=== PATIENT | female | born 2000 | race Caucasian/White ===

== ENCOUNTER 2020-03-10 14:47 | Emergency (ER) | payer OTHER ==
[~2020-03-10] VITALS: Ht 170.2 cm; Wt 83.9 kg
[2020-03-10 15:37] LABS: URINE BLOOD NEGATIVE (Negative); URINE CLARITY CLEAR; URINE COLOR YELLOW; URINE GLUCOSE-RANDOM* NEGATIVE (Negative); URINE KETONES 3+ (Negative); URINE LEUKOCYTES-REFLEX NEGATIVE (Negative); URINE NITRITE-REFLEX NEGATIVE (Negative); URINE PROTEIN (DIPSTICK) NEGATIVE (Negative); URINE SPECIFIC GRAVITY >= 1.030 (1.005-1.035)
[2020-03-10 15:47] LABS: ICTOTEST (BILI CONFIRMATORY) Negative (Negative); URINE BILIRUBIN NEGATIVE (Negative); URINE REDUCING SUBSTANCE NEGATIVE
[2020-03-10 15:51] LABS: HEMATOCRIT 38.3 % (37.0-47.0); HEMOGLOBIN 12.9 gm/dL (12.0-15.0); MCH 29.9 pg (26.0-34.0); MCHC 33.6 g/dL (28.0-37.0); PLATELET COUNT 249 thou/uL (150-400); RBC 4.31 mil/uL (4.20-5.00); RDW 12.6 % (10.5-14.5)
[2020-03-10 15:54] LABS: AMP/METHAMP POSITIVE (Negative); BARBITURATES Negative (Negative); BENZODIAZEPINES Negative (Negative); COCAINE Negative (Negative); METHADONE Negative (Negative); OPIATES Negative (Negative); PCP Negative (Negative)
[2020-03-10 15:58] LABS: CALCIUM 9.1 mg/dL (8.5-10.1); CREATININE 0.4 mg/dL (0.6-1.0); POTASSIUM 4.7 mmol/L (3.5-5.1)
[2020-03-10 16:04] LABS: ALBUMIN 3.6 g/dL (3.4-5.0); TOTAL BILIRUBIN 1.1 mg/dL (0.2-1.0); TOTAL PROTEIN 7.4 g/dL (6.4-8.2)
[2020-03-10 16:10] LABS: ABSOLUTE NEUTROPHILS 8.8 thou/uL (1.4-8.2); PLATELET ESTIMATE NORMAL
[2020-03-10] MEDS ORDERED: CLEOCIN HCL300 MG PO (16:55)
[2020-03-10] MEDS ORDERED: MOBIC7.5 M1 PO (16:55)
[2020-03-10 18:03] VITALS: BP 132/79
== END 2020-03-10 18:03 | disposition home or self-care (01) ==
LOC: ER 14:47
PROVIDERS: Physician Assistant
DX: S40.022A Contusion of left upper arm, initial encounter (principal); L03.114 Cellulitis of left upper limb; F15.10 Other stimulant abuse, uncomplicated; X58.XXXA Exposure to other specified factors, initial encounter; Y93.89 Activity, other specified; Y92.89 Other specified places as the place of occurrence of the external cause; Y99.8 Other external cause status

== ENCOUNTER 2020-03-17 16:02 | Inpatient (IN) | payer OTHER ==
[~2020-03-17] VITALS: Ht 170.2 cm; Wt 87.1 kg
--- NOTE | ~2020-03-17 | O ---
[facility] [place] [address] OPERATIVE REPORT Name: MOIRA FRANCIS Room #: 357-P ADM IN M.R.#: [id number] Admission: 03/17/20 Attend Phys: Idris Babin MD Discharge: Date of : 89 Report #: [id number] THIS REPORT FOR: cc: ENRIQUE - No family physician/PCP ENRIQUE - No family physician/PCP Jose Miguel Milner MD ~ CC: [facility] physician/PCP Idris Babin DATE OF SERVICE: 03/21/2020 PREOPERATIVE DIAGNOSIS: Left arm hematoma/abscess. POSTOPERATIVE DIAGNOSIS: Left arm hematoma/abscess. OPERATION: Incision and drainage of left arm, hematoma/abscess. SURGEON: Jose Miguel Milner MD ANESTHESIA: Local monitored. ESTIMATED BLOOD LOSS: Minimal. SPECIMEN: Fluid for culture and sensitivity. DESCRIPTION OF PROCEDURE: After informed consent was obtained, the patient was brought to the operating room and placed supine. SCDs were placed and working and local monitored anesthesia was induced. The left arm was prepped and draped in the usual sterile fashion. She had opening in the left antecubital fossa. This was draining serous fluid. I took this opening and extended it laterally and medially approximately 1 cm on each side. This allowed for drainage of serosanguineous fluid. It was cultured. Loculations were broken up bluntly with a clamp. The area was then copiously irrigated with normal saline and packed with sterile gauze. Sterile dressings were applied. COMPLICATIONS: None. DISPOSITION: The patient was taken to recovery in satisfactory condition. By: [id number] Jose Miguel Milner MD /nt
[~2020-03-17 16:02] MED LIST: CLEOCIN HCL300 MG PO; MOBIC7.5 M1 PO
[2020-03-17 16:15] VITALS: BP 137/77
[2020-03-17 16:59] LABS: URINE BILIRUBIN 1+ (Negative); URINE BLOOD TRACE (Negative); URINE CLARITY CLOUDY; URINE COLOR YELLOW; URINE GLUCOSE-RANDOM* NEGATIVE (Negative); URINE KETONES NEGATIVE (Negative); URINE LEUKOCYTES-REFLEX NEGATIVE (Negative); URINE NITRITE-REFLEX NEGATIVE (Negative); URINE PROTEIN (DIPSTICK) 1+ (Negative)
[2020-03-17 17:02] LABS: ICTOTEST (BILI CONFIRMATORY) Positive (Negative)
[2020-03-17 17:12] LABS: SQUAMOUS >10 Many /LPF (0-3)
[2020-03-17 17:13] LABS: CASTS None Seen /LPF (None Seen); CRYSTALS None Seen /LPF (None Seen)
[2020-03-17 17:14] LABS: BACTERIA-REFLEX 1-9 Few /HPF (None Seen); URINE RBC 0-2 Rare /HPF (0-2); URINE WBC-REFLEX 0-5 Rare /HPF (0-5)
[2020-03-17 17:35] LABS: HEMATOCRIT 37.3 % (37.0-47.0); HEMOGLOBIN 12.2 gm/dL (12.0-15.0); MCH 29.1 pg (26.0-34.0); MCHC 32.8 g/dL (28.0-37.0); MCV 88.9 fL (80.0-100.0); PLATELET COUNT 212 thou/uL (150-400); RDW 12.5 % (10.5-14.5); WBC 15.6 thou/uL (4.0-11.0)
[2020-03-17 17:47] LABS: ANION GAP 12 mmol/L (7-16); BUN 11 mg/dL (7-18); CALCIUM 8.3 mg/dL (8.5-10.1); CHLORIDE 99 mmol/L (98-107); CO2 26 mmol/L (21-32); CREATININE 0.8 mg/dL (0.6-1.0); GLUCOSE 100 mg/dL (74-106); POTASSIUM 4.1 mmol/L (3.5-5.1); SODIUM 137 mmol/L (136-145)
[2020-03-17 17:50] LABS: APTT 31.4 Seconds (24.5-32.8); INR 1.2; PROTIME 12.4 Seconds (9.3-11.4)
[2020-03-17 17:58] LABS: ALBUMIN 2.8 g/dL (3.4-5.0); SGOT 50 U/L (15-37); SGPT 49 U/L (30-65); TOTAL BILIRUBIN 0.5 mg/dL (0.2-1.0); TOTAL PROTEIN 6.8 g/dL (6.4-8.2); TROPONIN-I <0.06 ng/mL (<0.06)
--- NOTE | 2020-03-17 18:01 | EKG ---
[facility] [place] [address] ELECTROCARDIOGRAM REPORT Name: MOIRA FRANCIS Room #: REG [facility]#: [id number] Admission: 03/17/20 Attend Phys: Discharge: Date of : 89 Report #: [id number] THIS REPORT FOR: cc: ENRIQUE - No family physician/PCP ENRIQUE - [facility] family physician/PCP Eliseo Swift MD [facility] ~ THIS REPORT FOR: //name// [facility] [place] [place] ED Test Date: 2020-03-17 Test Time: 17:42:04 Pat Name: MOIRA FRANCIS Department: Room: Gender: Director Of Testing: JADE ELLIS : 2000 Requested By: Savanna Barreto Order Number: [id number] MD: Eliseo Swift Measurements Intervals [place] Rate: 121 P: 27 NH: 115 QRS: 45 QRSD: 80 T: 22 QT: 300 QTc: 426 Interpretive Statements Sinus tachycardia Otherwise normal tracing Baseline wander in lead(s) V3 No previous ECG available for comparison Electronically Signed On 03-17-2020 18:00:55 LABORATORY INSPECTOR by Eliseo Swift [email or web address] <ELECTRONICALLY SIGNED> By: Eliseo Swift MD, FACC 03/17/20 1800 174 41 Eliseo Swift MD, [facility] /EPI
[2020-03-17 18:33] LABS: AMP/METHAMP POSITIVE (Negative); BARBITURATES Negative (Negative); BENZODIAZEPINES Negative (Negative); COCAINE Negative (Negative); METHADONE Negative (Negative); OPIATES Negative (Negative); PCP Negative (Negative)
[2020-03-17 18:52] LABS: ABSOLUTE NEUTROPHILS 11.1 thou/uL (1.4-8.2)
[2020-03-17 21:00] VITALS: BP 120/72
[2020-03-18 06:02] LABS: HEMATOCRIT 31.1 % (37.0-47.0); HEMOGLOBIN 10.3 gm/dL (12.0-15.0); MCH 29.5 pg (26.0-34.0); MCV 89.3 fL (80.0-100.0); RBC 3.48 mil/uL (4.20-5.00); RDW 12.5 % (10.5-14.5); WBC 12.8 thou/uL (4.0-11.0)
[2020-03-18 06:22] LABS: CALCIUM 8.4 mg/dL (8.5-10.1); CREATININE 0.6 mg/dL (0.6-1.0); POTASSIUM 3.9 mmol/L (3.5-5.1)
[2020-03-18 22:00] VITALS: BP 136/70
--- NOTE | 2020-03-18 22:00 | NUR ---
HAND OFF TOOL SENT TO [facility] AT THIS TIME
--- NOTE | 2020-03-18 22:14 | NUR ---
ATTEMPTING TO GIVE REPORT, ON HOLD "CANNOT FIND NURSE."
[2020-03-18 22:38] VITALS: BP 136/70
[2020-03-18 23:00] VITALS: BP 113/55
--- NOTE | 2020-03-19 03:41 | NUR ---
ADMITTED WITH CELLULITIS LEFT ANTECUBITAL FOSSA, IV FLUIDS AND INITIAL DOSE OF VANCOMYCIN GIVEN. DR GORMAN HERE, SWABBED WOUND, WILL START A SECOND ANTIBIOTIC. PLAN ELEVATION OF LEFT ELBOW. WOUND COVERED WITH GAUZE, ABD, KERLIX.
[2020-03-19 04:37] VITALS: BP 110/71
[2020-03-19 08:06] VITALS: BP 122/74
[2020-03-19 09:06] LABS: ABSOLUTE NEUTROPHILS 4.7 thou/uL (1.4-8.2); BASOPHILS 0.6 % (0.0-2.0); EOSINOPHILS 2.2 % (0.0-3.0); HEMATOCRIT 29.9 % (37.0-47.0); LYMPHOCYTES 28.3 % (24.0-44.0); MCH 30.2 pg (26.0-34.0); MCHC 33.6 g/dL (28.0-37.0); MCV 89.9 fL (80.0-100.0); MONOCYTES 11.8 % (1.0-8.0); PLATELET COUNT 192 thou/uL (150-400); POLYS 57.1 % (36.0-66.0); RBC 3.33 mil/uL (4.20-5.00); RDW 12.5 % (10.5-14.5); WBC 8.3 thou/uL (4.0-11.0)
[2020-03-19 09:19] LABS: CREATININE 0.7 mg/dL (0.6-1.0); MAGNESIUM 1.9 mg/dL (1.8-2.4); POTASSIUM 4.1 mmol/L (3.5-5.1); TOTAL BILIRUBIN 0.5 mg/dL (0.2-1.0); TOTAL PROTEIN 5.7 g/dL (6.4-8.2)
--- NOTE | 2020-03-19 14:01 | NUR ---
ASSUMED CARE OF PT AT 0700. PT AOX4 IN NO ACUTE DISTRESS. PLEASANT, VOICING NO COMPLAINTS. IVF AND ABX INFUSING PER ORDER. SURGERY CONSULTED. POSSIBLE SURGERY TOMORROW. 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 CALLS APPROPRIATELY. ELAINE.
--- NOTE | 2020-03-19 14:38 | NUR ---
INITIAL ASSESSMENT: Received consult. SW reviewed chart and spoke with nursing and attending physician. Pt was admitted due to left arm cellulitis. Pt was in the ER on 03/10 and discharged with script for abx. Pt did not fill script. Pt with positive COVID test and is in Enhanced Isolation. Pt is afebrile and not requiring O2. Pt is on IV abx. ID and surgery consulted. Pt with hx of IV drug use. Pt does not have health insurance. Med Assist to screen pt for financial assistance. SHE placed call to pt's room. No answer. No listed contact number for pt. Per nursing, pt may have surgery tomorrow. No weekend discharge anticipated. SW will continue to try to reach pt for assessment and discharge planning. Per chart, pt is homeless. SHE is following to assist as needed with discharge planning.
[2020-03-19 15:06] VITALS: BP 110/86
[2020-03-19 19:58] VITALS: BP 128/88
--- NOTE | 2020-03-20 03:42 | NUR ---
ASSESSMENTS CHARTED, MEDS CHARTED GIVEN. PATIENT RESTING IN BED DURING SHIFT. DENIED PAIN IN ARM. C/O STOMACH ACHE. MAINTENANCE FLUIDS BEING GIVEN DURING SHIFT. ON ROOM AIR, BEING NPO SINCE MIDNIGHT DUE TO POSSIBLE SURGERY IN THE AM. NO ORDERS ON CHART OF NOW, BUT PROCEDURE WAS DISCUSSED. IV ANTIBIOTIC THERAPY. VSS. FALL PRECAUTIONS IN PLACE.
[2020-03-20 04:09] VITALS: BP 127/82
[2020-03-20 07:53] VITALS: BP 110/70
[2020-03-20 17:25] VITALS: BP 125/61
[2020-03-20 20:20] VITALS: BP 150/76
[2020-03-21 03:50] VITALS: BP 140/70
--- NOTE | 2020-03-21 03:56 | NUR ---
Patient working towards outcome goals. NPO after MN for incision and drainage of left arm abcess. Afebrile. IVfluids infusing. Gait steady, up adlib.
[2020-03-21 07:11] VITALS: BP 133/77
[2020-03-21 09:27] VITALS: BP 132/89
[2020-03-21 15:06] VITALS: BP 124/72
--- NOTE | 2020-03-21 18:29 | NUR ---
PATIENT HAD RIGHT ARM I & D IN AM. UP AD KEYANA IN ROOM. TOWARDS POC GOALS.
[2020-03-21 19:55] VITALS: BP 146/89
--- NOTE | 2020-03-22 05:21 | NUR ---
Patient progressing towards outcome goals. Afebrile. Vital signs stable. Left arm dressing dry and intact. IVfluids infusing. Up adlib without difficulty.
[2020-03-22 05:28] VITALS: BP 183/86
[2020-03-22 10:04] VITALS: BP 124/69
--- NOTE | 2020-03-22 15:30 | NUR ---
SW reviewed chart and spoke with nursing and attending physician. Pt remains in Enhanced Isolation due to COVID-19. Pt is afebrile and not requiring O2. Pt is on IV abx. Pt had I&D of her left arm on Sunday. Awaiting input from ID re: abx. Pt with hx of IV drug use. SW spoke with pt via phone. Introduced role of SW. Pt is alert/orientated x 4. Pt reports she is normally independent with ADLs. No use of DME. Pt states she has been staying with friends, who will be evicting from their home on Sunday, 03/29. Pt needs to get her dog and personal belongings from the home prior to that day. Pt states that her mother lives in [place] and might be able to come pick her up from the hospital when discharged. Pt reports that her mother is sometimes unreliable and she is not sure what her plan will be. Pt does not have health insurance and does not have a PCP. SW is following to assist as needed with discharge planning.
[2020-03-22 16:05] VITALS: BP 134/65
--- NOTE | 2020-03-22 19:12 | NUR ---
ASSUMED PATIENT CARE AT 0700. A/O X4.AQUACEL AG STRIP PACKED TO LEFT AC WOUND. 3RD COVID NEGATIVE. PROGRESSING TOWARDS POC GOALS.
[2020-03-22 20:20] VITALS: BP 147/96
[2020-03-23 04:00] VITALS: BP 124/74
[2020-03-23 07:13] VITALS: BP 132/72
--- NOTE | 2020-03-23 07:45 | NUR ---
ASSUMED CARE AT 1900, ASSESSMENT COMPLETED. PT C/O MIGRAINE, GAVE TYLENOL ONCE. PT TOOK SHOWER, AND DESPITE WRAPPING WOUND DRESSING AND IV, BOTH BECAME WET. CHANGED ABD AND KERLIX ON INCISION SITE. RIGHT FA IV HAD INFILTRATED; NEW IV PLACED TO LEFT UA NEAR SHOULDER. NO OTHER CONCERNS, SHIFT REPORT GIVEN 0700.
--- NOTE | 2020-03-23 09:47 | NUR ---
WOUND CARE CONSULT; HERE TO ASSESS AND CHANGE THE LEFT A/C SURGICAL INSC. RE; ABCESS CONSULTED BY DR JERONIMO. THE WOUND BED LOOKS CLEAN, RED TISSUE. OTHER STRUCTURES SEEN; CONNECTIVE TISSUE. NO ODOR. THE PATIENT WAS GUARDED WITH THIS WOULD IT IS APPROXEMENTALY 4.5 X 3.5 X 3.0. SMALL TO MODERATE S/S DRAINAGE SINCE DRESSING CHANGE OR 02/20/20. RECOMMENDATION; CONTINUE. I EDUCATED THE PATIENT RE; THE CARE OF THIS WOUND RE; DRESSING CHANGES, WHEN TO SEEK CARE. S/S OF INFECTION. ETC. THE PATIENT HAD A FEW QUESTIONS. i PROVIDED SUPPLIES.
[2020-03-23] MEDS ORDERED: ZYVOX600 MG PO (13:22)
[2020-03-23] MEDS ORDERED: ACETAMINOPHEN325 M1 PO (13:22)
--- NOTE | 2020-03-23 15:21 | NUR ---
DISCHARGE NOTE: SHE reviewed chart and spoke with nursing and attending physician. Pt has had two negative COVID tests and is medically stable for discharge home today. Wound care provided education on dressing changes/packing. Pt will be on PO Zyvox. SHE spoke with pt via phone to discuss discharge plan. Pt states she is technically homeless, but her Mom and/or Grandma are coming from [place], [place] to pick her up and take her home with them. Pt states this is her only option at this time, as the friends she has been staying with in , are going to be evicted on Sunday. 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 Pt asked if SHE could assist with starting process for Section 8 housing in [place], [place]. SHE placed call to the Housing Dept and spoke with Idris Mauro ([phone]) per pt's request. Idris states that pt will need to fill out an application, go through the screening process and then if eligible, she will be placed on the waiting list. Idris states the applications are not online or available anywhere except at the office. SHE spoke with pt to provide update. Pt verbalized understanding. SW placed info in discharge summary. SW obtained script for PO Zyvox. Discussed with Director of Case Mgmt. Will vouch for med and tylenol. SW updated pt's nurse. Pt to discharge home later today when transportation arrives. No additional SW needs identified at this time, but is available to assist should needs arise.
[2020-03-23 15:29] VITALS: BP 132/72
[2020-03-23 15:45] VITALS: BP 147/80
[2020-03-23 16:05] VITALS: BP 132/72
--- NOTE | 2020-03-23 19:47 | NUR ---
PT SAID HER GRANDMA WAS HERE TO PICK HER UP ABOUT 1939. GAVE D/C PAPERWORK AND EDUCATION, INCLUDING FOLLOWING UP W/ PHYSICIANS, WOUND, CARE, AND NEW PRESCRIPTIONS. PT SIGNED PAPERS, AND WAS WALKED TO ED ENTRANCE BY MARINE RAILWAY OPERATOR. D/C IN STABLE CONDITION AT 194.
== END 2020-03-23 19:48 | disposition home or self-care (01) | DRG 871 ==
LOC: ER 16:02 → EROBS 19:26 → 3W 19:26
PROVIDERS: Nurse Practitioner Family; Physician Assistant; ADMIT Internal Medicine; ATTEND Internal Medicine
PROC: 0X990ZZ Drainage of Left Upper Arm, Open Approach (ICD-10-PCS; principal; 2020-03-21)
DX: A41.9 Sepsis, unspecified organism (principal); U07.1 COVID-19; L03.114 Cellulitis of left upper limb; L02.414 Cutaneous abscess of left upper limb; E66.01 Morbid (severe) obesity due to excess calories; M06.9 Rheumatoid arthritis, unspecified; S40.022A Contusion of left upper arm, initial encounter; Z88.1 Allergy status to other antibiotic agents; Z91.14 Patient's other noncompliance with medication regimen; Z68.30 Body mass index [BMI] 30.0-30.9, adult; Z59.0 Homelessness; Z79.899 Other long term (current) drug therapy; X58.XXXA Exposure to other specified factors, initial encounter; Y93.89 Activity, other specified; Y92.89 Other specified places as the place of occurrence of the external cause; Y99.8 Other external cause status
CPT/HCPCS: 10779; 50101; 50386; 57091; 62110; 62900